=== PATIENT | female | born 1950 | race African-American/Black ===

== ENCOUNTER → 2018-06-20 | Outpatient (CLI) | payer OTHER ==
[~2018-06-20] MED LIST: ASPIR 8181 MG PO; CALCIUM 500 +1 EAC5 PO; GABAPENTIN 100100 MG PO; MAGNESIUM OXID400 MG PO; NAPROSYN500 M1 PO; NEXIUM40 MG PO; SYMBICORT160 MCG/4. INH; VENTOLIN HFA 1818 GM INH; VITAMIN D-32000 UNIT PO; VITAMINC500 PO; ZYRTEC10 MG PO
== END ==
LOC: RAD 14:13
DX: J45.40 Moderate persistent asthma, uncomplicated (principal)